=== PATIENT | female | born 1975 | race Caucasian/White ===

== ENCOUNTER 2018-04-26 23:09 | Emergency (ER) | payer OTHER ==
[2018-04-26 23:18] VITALS: BP 144/90; PULSE 78; TEMP 98.3; BMI 35.1
[2018-04-26] MEDS ORDERED: DEXAMETHASONE SOD PHOSPHATE 10 MG/1 ML VIAL IM ONE (23:24)
--- NOTE | 2018-04-26 23:24 | PDOC ---
History of Present Illness - General Chief Complaint: Poison [place],Poison Sarahi Exposure Stated Complaint: POISON SARAHI X 2 WEEKS Time Seen by Provider: 04/26/18 23:12 History Source: Patient Exam Limitations: No Limitations - History of Present Illness Initial Comments: 04/26/18 23:25 This is a 42-year-old female who comes in complaining of 2 weeks of itching and poison sarahi secondary to going in some bushes at a park 2 weeks ago. Patient saw her primary care doctor was given calamine lotion which she has been using but says it's itching too much for her to be able to sleep. Patient otherwise denies any complaints. PAST MEDICAL HISTORY: no significant history PAST SURGICAL HISTORY: no significant history FAMILY HISTORY: no pertinant history SOCIAL HISTORY: Pt lives with family and is employed. MEDICATIONS: reviewed ALLERGIES: As per nursing notes Review of Systems General: No fevers or chills, no weakness, no weight loss HEENT: No change in vision. No sore throat,. No ear pain CardioVascular: No chest pain or shortness of breath Respiratory:No cough, or wheezing. Gastrointestinal: no nausea, vomitting, diarrhea or constipation, No rectal bleeding Genitourinary: No dysuria, hematuria, or frequency Musculoskeletal: No joint or muscle pain or swelling Neurologic: No headache, vertigo, dizziness or loss of consciousness Psychiatric: nor depression Skin: poison sarahi rash as per history of present illness Allergic: no skin or latex allergy All other systems reviewed and normal GENERAL: The patient is awake, alert, and fully oriented, in no acute distress. HEAD: Normal with no signs of trauma. EYES: Pupils equal, round and reactive to light, extraocular movements intact, sclera anicteric, conjunctiva clear. EXTREMITIES: Normal range of motion, no edema. NEUROLOGICAL: Normal speech, normal gait. grossly intact PSYCH: Normal mood, normal affect. SKIN: Warm, Dry, normal turgor, there are multiple areas of rash on her trunk and arms and legs that are consistent with poison sarahi. None of them appear to be secondarily infected at this time. Assessment and plan: This is a 42-year-old female with rash on her trunk and arms and legs secondary to poison sarahi exposure. Patient given Decadron IM and a Medrol Dosepak. Patient discharged home with her Past History - Past Medical History Allergies/Adverse Reactions: Allergies Allergy/AdvReac Type Severity Reaction Status Date / Time No Known Allergies Allergy Verified 04/26/18 23:12 Home Medications: Ambulatory Orders Methylprednisolone [Medrol Dose Tee] 4 mg PO ASDIR #21 tablet 04/26/18 Anemia: No Asthma: No Cancer: No Cardiac Disorders: No CVA: No COPD: No CHF: No Dementia: No Diabetes: No GI Disorders: No Disorders: No HTN: No Hypercholesterolemia: No Kidney Stones: Yes Liver Disease: No Seizures: No Thyroid Disease: No - Surgical History Cholecystectomy: Yes (2008) - Immunization History Immunization Up to Date: Yes - Suicide/Smoking/Psychosocial Hx Smoking Status: No Smoking History: Never smoked Have you smoked in the past 12 months: No Number of Cigarettes Smoked Daily: 0 Information on smoking cessation initiated: No Hx Alcohol Use: No Drug/Substance Use Hx: No Substance Use Type: None Hx Substance Use Treatment: No *Physical Exam - Vital Signs Last Vital Signs Temp Pulse Resp BP Pulse Ox 98.3 F 78 16 144/90 100 04/26/18 23:14 04/26/18 23:14 04/26/18 23:14 04/26/18 23:14 04/26/18 23:14 *DC/Admit/Observation/Transfer Diagnosis at time of Disposition: Poison sarahi dermatitis - Discharge Dispostion Disposition: HOME Condition at time of disposition: Stable Decision to Admit order: Yes - Prescriptions Prescriptions: Methylprednisolone [Medrol Dose Tee] 4 mg PO ASDIR #21 tablet - Referrals - Patient Instructions Additional Instructions: Get the prescription filled for the Medrol Dosepak and take as prescribed by the pack. You can also continue the calamine lotion. Return to the emergency department immediately with ANY new, persistent or worsening symptoms. Continue any medications as previously prescribed by your physician. You should follow up with your primary doctor as soon as possible regarding today's emergency department visit. . Please make sure your doctor reviews the results of your emergency evaluation. Thank you for coming to the Emergency Department today for your care. It was a pleasure to see you today. Please note that your evaluation is INCOMPLETE until you follow-up with your doctor. - Post Discharge Activity
== END 2018-04-26 23:37 | disposition home or self-care (01) ==
LOC: FER 23:09
PROC: 3E023GC Introduction of Other Therapeutic Substance into Muscle, Percutaneous Approach (ICD-10-PCS; principal; 2018-04-26)
DX: Z87.442 Personal history of urinary calculi (principal)
CPT/HCPCS: 99281-25; J1100

== ENCOUNTER 2019-04-03 23:53 | Emergency (ER) | payer OTHER ==
[2019-04-03 23:59] VITALS: BP 150/100; PULSE 90; TEMP 98.5; BMI 35.2
[2019-04-04] MEDS ORDERED: SODIUM CHLORIDE 1,000 ML IV STA (01:02)
[2019-04-04] MEDS ORDERED: ACETAMINOPHEN 1000 MG/100 ML VIAL (NON FORMULARY) IVPB ONE (01:02)
[2019-04-04] MEDS ORDERED: ACETAMINOPHEN INJECTION 100 ML IVPB ONE (01:13)
[2019-04-04 01:52] LABS: BASO % 0.3 % (0-2.0); EOS % 1.6 % (0-4.5); HEMATOCRIT 39.5 % (32.4-45.2); HEMOGLOBIN 12.7 GM/dL (10.7-15.3); LYMPH % 20.6 % (8-40); MCH 24.9 pg (25.7-33.7); MCHC 32.1 g/dl (32.0-36.0); MEAN CELL VOLUME 77.6 fl (80-96); MEAN PLT VOLUME 8.9 fl (7.5-11.1); MONO % 6.2 % (3.8-10.2); NEUT % 71.3 % (42.8-82.8); PLATELET COUNT 217 K/MM3 (134-434); RBC 5.09 M/mm3 (3.60-5.2); RDW 14.9 % (11.6-15.6); WHITE BLOOD COUNT 11.2 K/mm3 (4.0-10.0)
[2019-04-04 01:59] LABS: EPI CELLS 9.5 /HPF (0-5/HPF); URINE APPEARANCE CLOUDY; URINE BACTERIA 501.2 /hpf (NEGATIVE); URINE BILIRUBIN NEGATIVE (NEGATIVE); URINE CASTS 11 /lpf (0-8); URINE COLOR YELLOW; URINE GLUCOSE (UA) NEGATIVE (NEGATIVE); URINE KETONE NEGATIVE (NEGATIVE); URINE LEUK ESTERASE 1+ (NEGATIVE); URINE NITRITE NEGATIVE (NEGATIVE); URINE PROTEIN NEGATIVE (NEGATIVE); URINE RBC 7 /hpf (0-4); URINE UROBILINOGEN 0.2 mg/dL (0.2-1.0); URINE WBC 14 /hpf (0-5)
--- NOTE | 2019-04-04 02:03 | PDOC ---
History of Present Illness - General Chief Complaint: Pain, Acute Stated Complaint: ABDOMINAL PAIN AFTER EATING SEAFOOD Time Seen by Provider: 04/03/19 23:55 - History of Present Illness Initial Comments: 04/04/19 02:00 43 F with h/o DM, diverticulitis, presenting to ED with LLQ pain x 1 day. Pt states that she noticed the pain after eating dinner today. Ate seafood. Denies N/V/D. No one else is sick. Pt states the pain is constant. Denies F/C. Denies BRBPR or dark tarry stools. Denies CP/SOB. Denies dysuria or flank pain. Is currently on her period. Past History - Past Medical History Allergies/Adverse Reactions: Allergies Allergy/AdvReac Type Severity Reaction Status Date / Time No Known Allergies Allergy Verified 04/03/19 23:55 Home Medications: Ambulatory Orders Metformin HCl [Glucophage] 800 mg PO DAILY 04/03/19 Sulfamethoxazole/Trimethoprim [Bactrim Ds -] 1 tab PO BID #14 tablet 04/04/19 metroNIDAZOLE [Flagyl -] 500 mg PO TID #21 tablet 04/04/19 Anemia: No Asthma: No Cancer: No Cardiac Disorders: No CVA: No COPD: No CHF: No Dementia: No Diabetes: Yes GI Disorders: No Disorders: No HTN: No Hypercholesterolemia: No Kidney Stones: Yes Liver Disease: No Seizures: No Thyroid Disease: No - Surgical History Cholecystectomy: Yes (2008) - Immunization History Immunization Up to Date: Yes - Suicide/Smoking/Psychosocial Hx Smoking Status: No Smoking History: Never smoked Have you smoked in the past 12 months: No Number of Cigarettes Smoked Daily: 0 Information on smoking cessation initiated: No Hx Alcohol Use: No Drug/Substance Use Hx: No Substance Use Type: None Hx Substance Use Treatment: No Review of Systems - Review of Systems Comments:: 04/04/19 02:02 "GENERAL/CONSTITUTIONAL: No fever or chills. No weakness. HEAD, EYES, EARS, NOSE AND THROAT: No change in vision. No ear pain or discharge. No sore throat. CARDIOVASCULAR: No chest pain, no shortness of breath, no loss of consciousness RESPIRATORY: No cough, wheezing, or hemoptysis. GASTROINTESTINAL: + abdominal pain, No nausea, vomiting, diarrhea or constipation. GENITOURINARY: No dysuria, frequency, or change in urination. MUSCULOSKELETAL: No joint or muscle swelling or pain. No neck or back pain. SKIN: No rash NEUROLOGIC: No vertigo, no change in strength/sensation. ENDOCRINE: No increased thirst. No abnormal weight change. HEMATOLOGIC/LYMPHATIC: No anemia, easy bleeding, or history of blood clots. ALLERGIC/IMMUNOLOGIC: No hives or skin allergy. *Physical Exam - Vital Signs Last Vital Signs Temp Pulse Resp BP Pulse Ox 98.5 F 90 16 150/100 100 04/03/19 23:57 04/03/19 23:57 04/03/19 23:57 04/03/19 23:57 04/03/19 23:57 - Physical Exam Comments: 04/04/19 02:02 "GENERAL: Awake, alert, and fully oriented, in no acute distress. HEAD: No signs of trauma EYES: PERRLA, EOMI, sclera anicteric, conjunctiva clear ENT: Auricles normal inspection, hearing grossly normal, nares patent, oropharynx clear without exudates. Moist mucosa NECK: Nontender, no stepoffs, Normal ROM, supple, no lymphadenopathy, JVD, or masses LUNGS: Breath sounds equal, clear to auscultation bilaterally. No wheezes, and no crackles HEART: Regular rate and rhythm, normal S1 and S2, no murmurs, rubs or gallops ABDOMEN: + suprapubic and LLQ TTP, normoactive bowel sounds. No guarding, no rebound. No masses EXTREMITIES: Normal range of motion, no edema. No clubbing or cyanosis. No cords, erythema, or tenderness NEUROLOGICAL: Cranial nerves II through XII intact. 5/5 strength and sensation in all extremities, Normal speech, normal gait, normal cerebellar function SKIN: Warm, Dry, normal turgor, no rashes or lesions noted. : scant blood in vault, no CMT, no adnexal tenderness or masses ED Treatment Course - LABORATORY CBC & Chemistry Diagram: 04/04/19 01:10 04/04/19 01:10 - ADDITIONAL ORDERS Additional order review: Laboratory Results 04/04/19 01:10 Urine Color Cancelled Urine Appearance Cancelled Urine pH Cancelled Urine Protein Cancelled Urine Glucose (UA) Cancelled Urine Ketones Cancelled Urine Blood Cancelled Urine Nitrite Cancelled Urine Bilirubin Cancelled Urine Urobilinogen Cancelled Ur Leukocyte Esterase Cancelled - RADIOLOGY Radiology Studies Ordered: Category Date Time Status ABDOMEN & PELVIS CT WITH CONTR [CT] Stat CT Scan 04/04/19 01:02 Ordered - Medications Given in the ED: ED Medications Discontinued Medications Generic Name Dose Route Start Last Admin Trade Name Oliver PRN Reason Stop Dose Admin Acetaminophen 1,000 mg 04/04/19 01:02 04/04/19 01:13 Ofirmev Injection - IVPB 04/04/19 01:03 1,000 mg ONCE ONE Administration Medical Decision Making - Medical Decision Making 04/04/19 02:02 43 F with LLQ pain. Suspect diverticulitis given prior history. Low suspicion for pathology, as she had normal pelvic exam. - Labs, UA, UPT - CTAP - IVF, tylenol 04/04/19 03:[address] shows uncomplicated sigmoid diverticulitis Pt reassessed - pain is well controlled Will DC with bactrim and flagyl Pt is well appearing, with normal vitals. Clinically stable for DC at this time. I discussed the physical exam findings, ancillary test results and final diagnoses with the patient. I answered all of the patient's questions. The patient was satisfied with the care received and felt comfortable with the discharge plan and treatment plan. The patient agrees to follow up with the primary care physician within 24-72 hours. *DC/Admit/Observation/Transfer Diagnosis at time of Disposition: Diverticulitis - Discharge Dispostion Disposition: HOME Condition at time of disposition: Stable - Referrals - Patient Instructions Printed Discharge Instructions: DI for Diverticulitis Additional Instructions: You have diverticulitis, an infection of your colon. Take the antibiotics as prescribed to treat it. If you experience worsening pain, vomiting, fevers, or any other concerning symptoms, return to the ER immediately. Otherwise, follow up with your primary doctor within 1 week. - Post Discharge Activity - Attestations Physician Attestion: 04/04/19 03:57 I, Dr. Gabriele Berger MD, attest that this document has been prepared under my direction and personally reviewed by me in its entirety. I further attest, that it accurately reflects all work, treatment, procedures and medical decision -making performed by me.
[2019-04-04 02:21] LABS: ALBUMIN 3.2 g/dl (3.4-5.0); BILIRUBIN,TOTAL 0.2 mg/dL (0.2-1); CALCIUM 8.6 mg/dL (8.5-10.1); CREATININE 0.4 mg/dL (0.55-1.3); POTASSIUM 3.7 mmol/L (3.5-5.1); TOT PROT 7.2 g/dl (6.4-8.2)
[2019-04-04] MEDS ORDERED: SULFAMETHOXAZOLE/TRIMETHOPRIM 800MG/160MG D.S. TABLET PO ONE (03:56)
[2019-04-04] MEDS ORDERED: metroNIDAZOLE 250 MG TABLET PO ONE (03:56)
[2019-04-04] MEDS ORDERED: SULFAMETHOXAZOLE/TRIMETHOPRIM 800MG/160MG D.S. TABLET ONE (04:01)
== END 2019-04-04 04:08 | disposition home or self-care (01) ==
LOC: FER 23:53
PROC: 3E033NZ Introduction of Analgesics, Hypnotics, Sedatives into Peripheral Vein, Percutaneous Approach (ICD-10-PCS; principal; 2019-04-03)
PROC: 3E0337Z Introduction of Electrolytic and Water Balance Substance into Peripheral Vein, Percutaneous Approach (ICD-10-PCS; 2019-04-03)
DX: K57.92 Diverticulitis of intestine, part unspecified, without perforation or abscess without bleeding (principal); N20.0 Calculus of kidney; E11.9 Type 2 diabetes mellitus without complications
CPT/HCPCS: 36415; 74177-TC; 80053; 81003; 84703; 85025; 99281-25; J0131; J7030

== ENCOUNTER 2019-06-23 23:22 | Emergency (ER) | payer OTHER ==
[2019-06-23 23:36] VITALS: TEMP 99.1; BMI 35.3
[2019-06-23 23:47] LABS: EPITHELIAL CELLS FEW /hpf
[2019-06-24] MEDS ORDERED: SODIUM CHLORIDE 0.9% 500 ML INFUS.BAG IV ONE (00:12)
[2019-06-24] MEDS ORDERED: ONDANSETRON 4 MG/2 ML VIAL IVPUSH ONE ×2 (00:12→02:41)
[2019-06-24] MEDS ORDERED: ACETAMINOPHEN 1000 MG/100 ML VIAL (NON FORMULARY) IVPB ONE (00:12)
[2019-06-24] MEDS ORDERED: ACETAMINOPHEN INJECTION 100 ML IVPB ONE (00:29)
[2019-06-24] MEDS ORDERED: ONDANSETRON 4 MG/2 ML VIAL ONE ×2 (00:29→02:43)
--- NOTE | 2019-06-24 00:32 | PDOC ---
Documentation entered by Chela Lozano SCRIBE, acting as scribe for Lalito Carpenter MD. Lalito Carpenter MD: This documentation has been prepared by the Marta lyon Adrianna, SCRIBE, under my direction and personally reviewed by me in its entirety. I confirm that the documentation accurately reflects all work, treatment, procedures, and medical decision making performed by me. History of Present Illness - General Chief Complaint: Pain Stated Complaint: ABD/BACK PAIN Time Seen by Provider: 06/23/19 23:40 - History of Present Illness Initial Comments: The patient is a 43 year old female, with a significant PMH of diverticulitis, diabetes, chronic headaches, and kidney stones, who presents to the ED for evaluation of abdominal pain for 2 days. Patient notes she began experiencing LLQ abdominal pain yesterday morning, which she notes has been sharp and constant in nature. Patient endorses associated chills, subjective fever, nausea , and 5 episodes of non bilious, non-bloody vomit. She notes she went to the clinic this morning for evaluation of symptoms, where she was told it was most likely a UTI and was given antibiotics. Patient presents to the ED tonight as her symptoms have progressively worsened, in addition to sudden onset bilateral low back burning pain. Her LBM was this morning and normal (not bloody or dark ), and her LMP was 10 days ago (patient denies possibility of as she has an IUD). She denies any history of similar back pain, but notes her abdominal pain feels similar to her episode of diverticulitis in the past (March 2019). Patient endorses a headache, but this is present at baseline and she is currently getting worked up by a neurologist for this complaint. Denies focal weakness/numbness, CP, SOB, dysuria, hematuria, frequency, LE edema or pain, rashes. Allergies: NKA, NKDA Surgical History: Cholecystectomy Social History: Denies EtOH, tobacco, or illicit drug use PCP: NOS Past History - Past Medical History Allergies/Adverse Reactions: Allergies Allergy/AdvReac Type Severity Reaction Status Date / Time No Known Allergies Allergy Verified 04/03/19 23:55 Home Medications: Ambulatory Orders Metformin HCl [Glucophage] 1,700 mg PO DAILY 04/03/19 Aspirin [Aspirin EC] 81 mg PO DAILY 06/23/19 Ranitidine [Zantac -] 150 mg PO DAILY 06/23/19 Cipro 06/24/19 Ondansetron [Zofran Odt -] 4 mg SL BID PRN #4 od.tablet 06/24/19 Sulfamethoxazole/Trimethoprim [Bactrim Ds -] 1 tab PO BID #14 tablet 06/24/19 Anemia: No Asthma: No Cancer: No Cardiac Disorders: Yes (ASHD) CVA: No COPD: No CHF: No Dementia: No Diabetes: Yes GI Disorders: Yes (GASTRITIS, CONSTIPATION, DIVERTICULITIS) Disorders: No HTN: No Hypercholesterolemia: No Kidney Stones: Yes Liver Disease: Yes (STEATOHEPATITIS) Seizures: No Thyroid Disease: No Other medical history: MORBIDLY OBESE - Surgical History Cholecystectomy: Yes (2008) - Immunization History Immunization Up to Date: Yes - Suicide/Smoking/Psychosocial Hx Smoking Status: No Smoking History: Never smoked Have you smoked in the past 12 months: No Number of Cigarettes Smoked Daily: 0 Hx Alcohol Use: No Drug/Substance Use Hx: No Substance Use Type: None Hx Substance Use Treatment: No Review of Systems - Review of Systems Comments:: GENERAL/CONSTITUTIONAL: +Subjective fever. +Chills. No weakness. HEAD, EYES, EARS, NOSE AND THROAT: No change in vision. No ear pain or discharge. No sore throat. GASTROINTESTINAL: +Nausea. +5 episodes of green, bilious, non-bloody vomit. No diarrhea or constipation. GENITOURINARY: No dysuria, frequency, or change in urination. CARDIOVASCULAR: No chest pain or shortness of breath. RESPIRATORY: No cough, wheezing, or hemoptysis. MUSCULOSKELETAL: +LLQ abdominal pain. +Bilateral low back burning pain. No joint or muscle swelling. No neck pain. SKIN: No rash NEUROLOGIC: +Chronic headache (baseline). No vertigo, loss of consciousness, or change in strength/sensation. ENDOCRINE: No increased thirst. No abnormal weight change. HEMATOLOGIC/LYMPHATIC: No anemia, easy bleeding, or history of blood clots. ALLERGIC/IMMUNOLOGIC: No hives or skin allergy. *Physical Exam - Vital Signs Last Vital Signs Temp Pulse Resp BP Pulse Ox 99.1 F 102 H 18 144/82 99 06/23/19 23:31 06/23/19 23:31 06/23/19 23:31 06/23/19 23:31 06/23/19 23:31 - Physical Exam Comments: GENERAL: +Obese. Awake, alert, and fully oriented, in no acute distress HEAD: No signs of trauma EYES: PERRLA, EOMI, sclera anicteric, conjunctiva clear ENT: Oropharynx clear without exudates. Moist mucosa LUNGS: Breath sounds equal, clear to auscultation bilaterally. No wheezes, and no crackles HEART: Regular rate and rhythm, HR 94, normal S1 and S2, no murmurs, rubs or gallops ABDOMEN: +LLQ tenderness to palpation. Soft, normoactive bowel sounds. No distention, guarding, no rebound. No masses EXTREMITIES: Normal range of motion, no edema. No clubbing or cyanosis. No cords , erythema, or tenderness BACK: No CVA tenderness. No midline spinal tenderness in cervical/thoracic/ lumbar region. NEUROLOGICAL: Normal speech, cranial nerves intact, equal strength and sensation b/l SKIN: Warm, Dry, normal turgor, no rashes or lesions noted. ED Treatment Course - LABORATORY CBC & Chemistry Diagram: 06/24/19 00:29 06/24/19 00:29 - ADDITIONAL ORDERS Additional order review: Laboratory Results 06/23/19 23:30 Urine Color Yellow Urine Appearance Clear Urine pH 6.0 Urine Protein 3+ H Urine Glucose (UA) Negative Urine Ketones Negative Urine Blood 1+ H Urine Nitrite Negative Urine Bilirubin Negative Urine Urobilinogen 0.2 Ur Leukocyte Esterase Negative Urine RBC 5-10 Urine WBC 0-2 Ur Transition Epith Cell Few Urine Bacteria Few Medical Decision Making - Medical Decision Making 06/24/19 00:30 43yo F hx diverticulitis, renal colic presents to the ED with 2 days of LLQ pain a/w N/V, subjective fevers, low back pain Vitals with mild tachycardia, otherwise unremarkable. Exam with LLQ ttp DDx includes diverticulitis vs renal colic vs colitis vs enteritis vs ectopic Plan: -labs -UA/UCx -UPT -CTAP w IV contrast -antiemetics, pain meds -IVF reassess 06/24/19 03:26 POC preg neg Labs unremarkable, no white count UA with blood, 5-10 reds, few whites but pt is on ciprofloxacin CTAP w IV con was obtained - Imaging manager economic read: possible b/l pyelo and 3.6cm L sided ovarian cyst It's possible pt has partially treated UTI, now is pyelonephritis. Will broaden coverage to bactrim, PO challenge LLQ pain could also possibly be 2/2 ovarian cyst. Pain is constant and dull with no sudden waves of pain making torsion less likely Pt could also have passed a stone but it would be atypical for this to happen b/ l at the same time Plan to treat pain with toradol now that we know there is no surgical emergence Will PO challenge If her pain is improved and she tolerates PO, will DC pt with bactrim 06/24/19 04:25 Pain improved significatnly. Pt tolerating PO Requests [facility] I discussed the physical exam findings, ancillary test results and final diagnoses with the patient. I answered all of the patient's questions. The patient was satisfied with the care received and felt comfortable with the discharge plan and treatment plan. The patient will call their primary care physician within 24 hours to arrange follow-up and will return to the Emergency Department with any new, persistent or worsening symptoms. *DC/Admit/Observation/Transfer Diagnosis at time of Disposition: Abdominal pain, Ovarian cyst, Pyelonephritis - Discharge Dispostion Disposition: HOME Condition at time of disposition: Improved - Prescriptions Prescriptions: Ondansetron [Zofran Odt -] 4 mg SL BID PRN #4 od.tablet PRN Reason: Nausea Sulfamethoxazole/Trimethoprim [Bactrim Ds -] 1 tab PO BID #14 tablet - Referrals - Patient Instructions Printed Discharge Instructions: DI for Kidney Infection, DI for Ovarian Cyst Additional Instructions: Follow up with your primary care doctor within 1-2 days Take the antibiotic (bactrim) as prescribed. Do not take the antibiotic you were prescribed at clinic yesterday Drink plenty of fluids and stay hydrated Return to the emergency department if you have any new, worsening, or concerning symptoms such as vomiting, fever, worsening pain. Print Language: DUTCH - Post Discharge Activity - Attestations Physician Attestion: 06/24/19 04:28 I, Dr. Lalito Carpenter MD, attest that this document has been prepared under my direction and personally reviewed by me in its entirety. I further attest, that it accurately reflects all work, treatment, procedures and medical decision -making performed by me.
[2019-06-24 01:13] LABS: BASO % 0.4 % (0-2.0); EOS % 0.9 % (0-4.5); HEMATOCRIT 37.2 % (32.4-45.2); HEMOGLOBIN 12.3 GM/dL (10.7-15.3); MCH 25.6 pg (25.7-33.7); MEAN CELL VOLUME 77.6 fl (80-96); MEAN PLT VOLUME 8.9 fl (7.5-11.1); MONO % 8.8 % (3.8-10.2); NEUT % 79.9 % (42.8-82.8); PLATELET COUNT 229 K/MM3 (134-434); RBC 4.79 M/mm3 (3.60-5.2); WHITE BLOOD COUNT 9.1 K/mm3 (4.0-10.0)
[2019-06-24] MEDS ORDERED: morphine CARPU-JECT 4 MG/1 ML DISP.SYRIN IVPUSH ONE (01:29)
[2019-06-24 01:30] LABS: ALBUMIN 3.1 g/dl (3.4-5.0); BILIRUBIN,TOTAL 0.4 mg/dL (0.2-1); BLOOD UREA NITROGEN 17.3 mg/dL (7-18); CALCIUM 8.6 mg/dL (8.5-10.1); CREATININE 1.3 mg/dL (0.55-1.3); POTASSIUM 3.9 mmol/L (3.5-5.1); TOT PROT 6.9 g/dl (6.4-8.2)
[2019-06-24] MEDS ORDERED: morphine SULFATE 4 MG/ML VIAL ONE (01:36)
[2019-06-24] MEDS ORDERED: KETOROLAC TROMETHAMINE 15 MG/ML VIAL IVPUSH ONE (03:18)
[2019-06-24] MEDS ORDERED: KETOROLAC TROMETHAMINE 15 MG/ML VIAL ONE (03:20)
[2019-06-24 03:44] VITALS: BP 143/88; PULSE 72
[2019-06-24] MEDS ORDERED: SULFAMETHOXAZOLE/TRIMETHOPRIM 800MG/160MG D.S. TABLET PO ONE (04:24)
[2019-06-24] MEDS ORDERED: SULFAMETHOXAZOLE/TRIMETHOPRIM 800MG/160MG D.S. TABLET ONE (04:28)
== END 2019-06-24 04:37 | disposition home or self-care (01) ==
LOC: FER 23:22
PROC: 3E0333Z Introduction of Anti-inflammatory into Peripheral Vein, Percutaneous Approach (ICD-10-PCS; principal; 2019-06-23)
PROC: 3E033NZ Introduction of Analgesics, Hypnotics, Sedatives into Peripheral Vein, Percutaneous Approach (ICD-10-PCS; 2019-06-23)
PROC: 3E0337Z Introduction of Electrolytic and Water Balance Substance into Peripheral Vein, Percutaneous Approach (ICD-10-PCS; 2019-06-23)
PROC: 3E033GC Introduction of Other Therapeutic Substance into Peripheral Vein, Percutaneous Approach (ICD-10-PCS; 2019-06-23)
DX: N83.202 Unspecified ovarian cyst, left side (principal); N12 Tubulo-interstitial nephritis, not specified as acute or chronic; R10.32 Left lower quadrant pain; E11.9 Type 2 diabetes mellitus without complications; I25.10 Atherosclerotic heart disease of native coronary artery without angina pectoris; Z79.82 Long term (current) use of aspirin; Z79.84 Long term (current) use of oral hypoglycemic drugs
CPT/HCPCS: 36415; 74177-TC; 80053; 81003; 81015; 81025; 83690; 85025; 87086; 99284-25; J0131

== ENCOUNTER 2021-02-02 15:07 | Emergency (ER) | payer OTHER ==
[2021-02-02] MEDS ORDERED: BAMLANIVIMAB 700 MG in SODIUM CHLORIDE 250 ML IVPB ONE (15:52)
[2021-02-02] MEDS ORDERED: ONDANSETRON 4 MG/2 ML VIAL IVPUSH ONE (15:54)
[2021-02-02 16:07] VITALS: BMI 36.5
[2021-02-02] MEDS ORDERED: ONDANSETRON 4 MG/2 ML VIAL ONE (16:18)
[2021-02-02 16:19] LABS: EOS % 0.1 % (0-4.5); HEMATOCRIT 47.4 % (32.4-45.2); HEMOGLOBIN 15.9 GM/dL (10.7-15.3); LYMPH % 35.7 % (8-40); MCH 25.2 pg (25.7-33.7); MCHC 33.4 g/dl (32.0-36.0); MEAN CELL VOLUME 75.4 fl (80-96); MEAN PLT VOLUME 8.5 fl (7.5-11.1); MONO % 14.3 % (3.8-10.2); NEUT % 48.9 % (42.8-82.8); PLATELET COUNT 160 K/MM3 (134-434); RBC 6.29 M/mm3 (3.60-5.2); RDW 15.8 % (11.6-15.6); WHITE BLOOD COUNT 2.8 K/mm3 (4.0-10.0)
[2021-02-02 16:40] LABS: POTASSIUM 5.8 mmol/L (3.5-5.1)
[2021-02-02 16:42] LABS: ALBUMIN 3.5 g/dl (3.4-5.0)
[2021-02-02 16:43] LABS: BLOOD UREA NITROGEN 8.1 mg/dL (7-18)
[2021-02-02 16:46] LABS: CREATININE 0.8 mg/dL (0.55-1.3)
[2021-02-02 16:47] LABS: BILIRUBIN,TOTAL 0.6 mg/dL (0.2-1); TOT PROT 8.7 g/dl (6.4-8.2)
[2021-02-02] MEDS ORDERED: ACETAMINOPHEN 325 MG TABLET (FP) ONE (17:18)
[2021-02-02] MEDS ORDERED: ACETAMINOPHEN 500 MG TABLET (FP) PO ONE (17:19)
[2021-02-02] MEDS ORDERED: SODIUM CHLORIDE 0.9% 500 ML INFUS.BAG IV ONE (17:20)
[2021-02-02 17:42] VITALS: BP 116/76; PULSE 120; TEMP 102.7
[2021-02-02 19:34] LABS: BLOOD UREA NITROGEN 7.7 mg/dL (7-18)
[2021-02-02 19:37] LABS: CREATININE 0.7 mg/dL (0.55-1.3)
[2021-02-02 19:52] LABS: POTASSIUM 6.2 mmol/L (3.5-5.1)
[2021-02-02 20:41] LABS: POTASSIUM 3.8 mmol/L (3.5-5.1)
[2021-02-02 20:42] LABS: CALCIUM 8.3 mg/dL (8.5-10.1)
[2021-02-02 20:46] LABS: CREATININE 0.6 mg/dL (0.55-1.3)
== END 2021-02-02 20:58 | disposition home or self-care (01) ==
LOC: JER 15:07 → JCOVINFU 15:07
PROC: 3E03329 Introduction of Other Anti-infective into Peripheral Vein, Percutaneous Approach (ICD-10-PCS; principal; 2021-02-02)
PROC: 3E033GC Introduction of Other Therapeutic Substance into Peripheral Vein, Percutaneous Approach (ICD-10-PCS; 2021-02-02)
DX: U07.1 COVID-19 (principal)
CPT/HCPCS: 36415; 80048; 80053; 85025; 93005; 93010; 99284-25; C9803; M0239; Q0239; U0003

== ENCOUNTER 2021-03-23 22:17 | Emergency (ER) | payer OTHER ==
[2021-03-23 22:56] VITALS: TEMP 98.1; BMI 35.2
[2021-03-23] MEDS ORDERED: ACETAMINOPHEN 325 MG TABLET (FP) PO ONE (22:57)
[2021-03-23] MEDS ORDERED: ONDANSETRON *ODT* 4 MG TABLET SL ONE (22:58)
[2021-03-23] MEDS ORDERED: SODIUM CHLORIDE 0.9% 500 ML INFUS.BAG IV ONE (23:17)
[2021-03-23] MEDS ORDERED: ACETAMINOPHEN 325 MG TABLET (FP) ONE (23:20)
[2021-03-23] MEDS ORDERED: ONDANSETRON *ODT* 4 MG TABLET ONE (23:21)
[2021-03-23 23:45] LABS: BASO % 0.4 % (0-2.0); EOS % 2.2 % (0-4.5); HEMATOCRIT 38.2 % (32.4-45.2); HEMOGLOBIN 12.6 GM/dL (10.7-15.3); LYMPH % 23.1 % (8-40); MCH 25.2 pg (25.7-33.7); MCHC 32.9 g/dl (32.0-36.0); MEAN CELL VOLUME 76.7 fl (80-96); MEAN PLT VOLUME 8.9 fl (7.5-11.1); NEUT % 65.3 % (42.8-82.8); PLATELET COUNT 219 K/MM3 (134-434); RBC 4.98 M/mm3 (3.60-5.2); RDW 15.8 % (11.6-15.6); WHITE BLOOD COUNT 7.3 K/mm3 (4.0-10.0)
[2021-03-24 00:02] LABS: CHLORIDE 107 mmol/L (98-107); SODIUM 141 mmol/L (136-145)
[2021-03-24 00:04] LABS: CALCIUM 8.1 mg/dL (8.5-10.1)
[2021-03-24 00:05] LABS: ALBUMIN 3.2 g/dl (3.4-5.0); ANION GAP 6 MMOL/L (8-16); BLOOD UREA NITROGEN 9.6 mg/dL (7-18); CO2 27 mmol/L (21-32); GLUCOSE,RANDOM 132 mg/dL (74-106); LIPASE 75 U/L (73-393)
[2021-03-24 00:08] LABS: CREATININE 0.6 mg/dL (0.55-1.3); SGOT/AST 30 U/L (15-37); SGPT/ALT 41 U/L (13-61)
[2021-03-24 00:09] LABS: BILIRUBIN,TOTAL 0.4 mg/dL (0.2-1)
[2021-03-24 00:10] LABS: TOT PROT 7.3 g/dl (6.4-8.2)
[2021-03-24 00:11] LABS: ALK PHOS 137 U/L (45-117)
[2021-03-24 03:20] VITALS: BP 130/74; PULSE 84
== END 2021-03-24 03:21 | disposition home or self-care (01) ==
LOC: JER 22:17
DX: K57.12 Diverticulitis of small intestine without perforation or abscess without bleeding (principal); R10.12 Left upper quadrant pain
CPT/HCPCS: 36415; 74177-TC; 80053; 83690; 84484; 84703; 85025; 93005; 93010; 99285-25; C9803; Q0162; Q9967; U0003; U0005

== ENCOUNTER 2023-06-05 16:45 | Emergency (ER) | payer OTHER ==
[2023-06-05 17:00] VITALS: RESP 18; BMI 34.2
[2023-06-05 17:20] LABS: EPITHELIAL CELLS MODERATE /hpf
[2023-06-05 17:21] LABS: HCG,QUALITATIVE URINE Negative
[2023-06-05] MEDS ORDERED: ACETAMINOPHEN 1000 MG/100 ML BAG IVPB ONE (17:25)
[2023-06-05] MEDS ORDERED: SODIUM CHLORIDE 1,000 ML IV STA (17:35)
[2023-06-05] MEDS ORDERED: ACETAMINOPHEN INJECTION 100 ML IVPB ONE (17:37)
[2023-06-05 17:47] LABS: HEMATOCRIT 38.4 % (32.4-45.2); HEMOGLOBIN 12.8 G/dL (10.7-15.3); MCH 26.2 pg (25.7-33.7); MCHC 33.3 g/dl (32.0-36.0); MEAN CELL VOLUME 78.7 fl (80-96); MEAN PLT VOLUME 9.3 fl (7.5-11.1); PLATELET COUNT 220.1 10^3/uL (134-434); RBC 4.88 10^6/uL (3.60-5.2); RDW 15.8 % (11.6-15.6); WHITE BLOOD COUNT 7.2 10^3/uL (4.0-10.8)
[2023-06-05 17:50] LABS: PLATELET ESTIMATE ADEQUATE
[2023-06-05 18:18] LABS: ALBUMIN 3.5 g/dl (3.4-5.0); BILIRUBIN,TOTAL 0.3 mg/dl (0.2-1); BLOOD UREA NITROGEN 9.9 mg/dl (7-18); CALCIUM 8.3 mg/dl (8.5-10.1); CREATININE 0.5 mg/dl (0.6-1.3); POTASSIUM 3.4 mmol/L (3.5-5.1); SGOT/AST 34.8 U/L (15-37); SGPT/ALT 37.8 U/L (7-52); TOT PROT 6.4 g/dl (6.4-8.2)
[2023-06-05] MEDS ORDERED: PIPERACILLIN/TAZOBACTAM 4.5 GM VIAL IVPB ONE (19:17)
[2023-06-05] MEDS ORDERED: PIPERACILLIN/TAZOB 4.5 GM 4.5 GM in DEXTROSE 5%-WATER 100 ML IVPB ONE (19:21)
[2023-06-05] MEDS ORDERED: methylPREDNISolone NA SUCC 125 MG/2 ML VIAL ONE (19:41)
[2023-06-05] MEDS ORDERED: FAMOTIDINE 20 MG/50 ML IVPB 20 MG/50 ML MG IVPB ONE ×2 (19:45→19:48)
[2023-06-05] MEDS ORDERED: methylPREDNISolone NA SUCC 125 MG/2 ML VIAL IVPUSH ONE (19:47)
[2023-06-05 20:24] VITALS: BP 123/81; PULSE 75; TEMP 98
== END 2023-06-05 21:10 | disposition home or self-care (01) ==
LOC: FER 16:45
PROC: 3E033GC Introduction of Other Therapeutic Substance into Peripheral Vein, Percutaneous Approach (ICD-10-PCS; principal; 2023-06-05)
PROC: 3E033NZ Introduction of Analgesics, Hypnotics, Sedatives into Peripheral Vein, Percutaneous Approach (ICD-10-PCS; 2023-06-05)
PROC: 3E033GC Introduction of Other Therapeutic Substance into Peripheral Vein, Percutaneous Approach (ICD-10-PCS; 2023-06-05)
PROC: 3E03329 Introduction of Other Anti-infective into Peripheral Vein, Percutaneous Approach (ICD-10-PCS; 2023-06-05)
PROC: 3E033GC Introduction of Other Therapeutic Substance into Peripheral Vein, Percutaneous Approach (ICD-10-PCS; 2023-06-05)
PROC: 3E0337Z Introduction of Electrolytic and Water Balance Substance into Peripheral Vein, Percutaneous Approach (ICD-10-PCS; 2023-06-05)
DX: R10.32 Left lower quadrant pain (principal); K57.32 Diverticulitis of large intestine without perforation or abscess without bleeding; N30.90 Cystitis, unspecified without hematuria; R11.0 Nausea
CPT/HCPCS: 36415; 74177-TC; 80053; 81003; 81015; 84703; 85027; 87086; 87186; 99285-25; Q9967

== ENCOUNTER 2023-09-16 17:40 | Emergency (ER) | payer OTHER ==
[2023-09-16] MEDS ORDERED: ONDANSETRON 4 MG/2 ML VIAL IVPUSH ONE (18:00)
[2023-09-16] MEDS ORDERED: FAMOTIDINE 20 MG/50 ML IVPB 20 MG/50 ML MG IVPB ONE ×2 (18:00→18:42)
[2023-09-16] MEDS ORDERED: SODIUM CHLORIDE 0.9% 500 ML INFUS.BAG IV ONE (18:00)
[2023-09-16] MEDS ORDERED: ACETAMINOPHEN 1000 MG/100 ML BAG IVPB ONE (18:00)
[2023-09-16] MEDS ORDERED: ONDANSETRON 4 MG/2 ML VIAL ONE (18:42)
[2023-09-16] MEDS ORDERED: ACETAMINOPHEN INJECTION 100 ML IVPB ONE (18:43)
[2023-09-16 18:45] LABS: HEMOGLOBIN 13.2 G/dL (10.7-15.3); MCH 25.6 pg (25.7-33.7); MCHC 32.9 g/dl (32.0-36.0); MEAN CELL VOLUME 77.8 fl (80-96); MEAN PLT VOLUME 9.3 fl (7.5-11.1); PLATELET COUNT 210.2 10^3/uL (134-434); RBC 5.14 10^6/uL (3.60-5.2); RDW 16.2 % (11.6-15.6); WHITE BLOOD COUNT 8.1 10^3/uL (4.0-10.8)
[2023-09-16] MEDS ORDERED: CEFTRIAXONE 1,000 MG in DEXTROSE 5%-WATER - 50 ML IVPB ONE (18:46)
[2023-09-16 18:49] LABS: HCG,QUALITATIVE URINE Negative
[2023-09-16 19:01] VITALS: TEMP 97.9; BMI 34.3
[2023-09-16 19:01] LABS: ALBUMIN 3.7 g/dl (3.4-5.0); BILIRUBIN,TOTAL 0.3 mg/dl (0.2-1); CALCIUM 9.1 mg/dl (8.5-10.1); CREATININE 0.5 mg/dl (0.6-1.3); POTASSIUM 3.5 mmol/L (3.5-5.1)
[2023-09-16 19:06] LABS: EPITHELIAL CELLS FEW /hpf
[2023-09-16 19:18] LABS: PLATELET ESTIMATE ADEQUATE
[2023-09-16 19:41] VITALS: RESP 16
[2023-09-16 20:56] VITALS: BP 141/79; PULSE 78
[2023-09-16] MEDS ORDERED: PHENAZOPYRIDINE HCL 100 MG TABLET (FP) PO ONE (21:04)
[2023-09-16] MEDS ORDERED: NITROFURANTOIN MONOHYD/M-CRYST 100 MG CAPSULE PO STA (21:04)
[2023-09-16] MEDS ORDERED: NITROFURANTOIN MACROCRYSTAL 50 MG CAPSULE (FP) ONE (21:11)
[2023-09-16] MEDS ORDERED: PHENAZOPYRIDINE HCL 100 MG TABLET (FP) ONE (21:11)
== END 2023-09-16 21:39 | disposition home or self-care (01) ==
LOC: FER 17:40
PROC: 3E033GC Introduction of Other Therapeutic Substance into Peripheral Vein, Percutaneous Approach (ICD-10-PCS; principal; 2023-09-16)
PROC: 3E033NZ Introduction of Analgesics, Hypnotics, Sedatives into Peripheral Vein, Percutaneous Approach (ICD-10-PCS; 2023-09-16)
PROC: 3E033GC Introduction of Other Therapeutic Substance into Peripheral Vein, Percutaneous Approach (ICD-10-PCS; 2023-09-16)
DX: R11.2 Nausea with vomiting, unspecified (principal); R10.32 Left lower quadrant pain; R50.9 Fever, unspecified; N30.90 Cystitis, unspecified without hematuria; Z20.822 Contact with and (suspected) exposure to COVID-19
CPT/HCPCS: 0241U-QW; 36415; 71045-TC-FY; 74177-TC; 80053; 81003; 81015; 83690; 84703; 85027; 87086; 87186; 99285-25; Q9967

== ENCOUNTER 2023-11-26 04:29 | Day surgery (SDC) | payer OTHER ==
[2023-11-24 11:06] VITALS: BMI 47.8
[2023-11-26 08:26] VITALS: TEMP 98
[2023-11-26 09:03] VITALS: PULSE 78
[2023-11-26 09:04] VITALS: BP 109/72; RESP 20
== END 2023-11-26 09:49 | disposition home or self-care (01) ==
LOC: JASU-ENDO 04:29
PROVIDERS: ATTEND Internal Medicine Gastroenterology
PROC: 0DJD8ZZ Inspection of Lower Intestinal Tract, Via Natural or Artificial Opening Endoscopic (ICD-10-PCS; principal; 2023-11-26 08:00)
DX: K57.30 Diverticulosis of large intestine without perforation or abscess without bleeding (principal); K64.8 Other hemorrhoids; E11.9 Type 2 diabetes mellitus without complications; Z79.84 Long term (current) use of oral hypoglycemic drugs; Z79.85 Long-term (current) use of injectable non-insulin antidiabetic drugs
CPT/HCPCS: 81025; 82962

== ENCOUNTER 2025-01-13 05:23 | Day surgery (SDC) | payer OTHER ==
[2025-01-12 15:47] VITALS: BMI 31.2
[2025-01-13] MEDS ORDERED: SUCCINYLCHOLINE CHLORIDE 200 MG/10 ML SYRINGE ONE (09:19)
[2025-01-13] MEDS ORDERED: PROPOFOL 20 ML ONE ×2 (09:19→09:54)
[2025-01-13] MEDS ORDERED: ACETAMINOPHEN 325 MG TABLET (FP) PO PRN (10:23)
[2025-01-13] MEDS ORDERED: oxyCODONE HCL 5 MG TABLET PO PRN (10:23)
[2025-01-13] MEDS ORDERED: ONDANSETRON 4 MG/2 ML VIAL IVPUSH PRN ×2 (10:23→10:32)
[2025-01-13] MEDS ORDERED: LACTATED RINGERS SOLUTION 1,000 ML IV SCH (10:30)
[2025-01-13 13:12] VITALS: BP 124/57; PULSE 80; RESP 18; TEMP 97.3
== END 2025-01-13 13:25 | disposition home or self-care (01) ==
LOC: JASU-SURG 05:23
PROVIDERS: ATTEND Obstetrics & Gynecology Obstetrics
PROC: 0UPD8HZ Removal of Contraceptive Device from Uterus and Cervix, Via Natural or Artificial Opening Endoscopic (ICD-10-PCS; principal; 2025-01-13 09:00)
DX: Z30.432 Encounter for removal of intrauterine contraceptive device (principal)
CPT/HCPCS: 81025; 82962; 94760

== ENCOUNTER 2025-03-24 08:24 | Emergency (ER) | payer OTHER ==
[2025-03-24 08:43] VITALS: BP 142/83; PULSE 79; RESP 18; TEMP 97.5; BMI 34.7
[2025-03-24] MEDS ORDERED: LIDOCAINE 5% TOPICAL PATCH ONE (09:11)
[2025-03-24] MEDS ORDERED: IBUPROFEN 400 MG TABLET (FP) PO ONE (09:11)
[2025-03-24] MEDS ORDERED: ACETAMINOPHEN 500 MG TABLET (FP) ONE (09:11)
[2025-03-24] MEDS: LIDOCAINE 5% TOPICAL PATCH TP ONE (09:15)
[2025-03-24] MEDS: IBUPROFEN 400 MG TABLET (FP) PO ONE (09:16)
[2025-03-24] MEDS: ACETAMINOPHEN 500 MG TABLET (FP) PO ONE (09:16)
[2025-03-24] MEDS ORDERED: LIDOCAINE PATCH REMOVAL MC ONE (22:00)
== END 2025-03-24 10:11 | disposition home or self-care (01) ==
LOC: FER 08:24
DX: G44.209 Tension-type headache, unspecified, not intractable (principal); M54.2 Cervicalgia
CPT/HCPCS: 0241U-QW; 99283-25